=== PATIENT | male | born 1960 | race American Indian/Alaskan Native ===

== ENCOUNTER 2022-06-10 23:04 | Observation (INO) | payer OTHER ==
[2022-06-10] MEDS ORDERED: ADENOSINE 6 MG/2 ML INJ ONE (23:20)
--- NOTE | 2022-06-10 23:53 | Emergency Department Report ---
HPI - General Time Seen by Provider: 06/10/22 23:11 - [facility] HPI: Room 7 The patient is a 62-year-old male present with chief complaint of palpitations and chest pain. Patient states just prior to arrival at 2258 while at rest he developed palpitations and squeezing chest pain. Patient states he did get short of breath with the pain but denies nausea/vomiting. EMS was called and arrived to find the patient in SVT. Patient was administered adenosine 6, 12 and 12 with no results. EMS EKG does not show where adenosine took effect. In the ED patient was administered 6 mg of adenosine without effect and then 12 mg of adenosine which broke the SVT the patient is now in normal sinus rhythm at 93 bpm. ED Past Medical Hx - Past Medical History Hx Hypertension: Yes Hx Diabetes: Yes - Surgical History Additional Surgical History: Mandible repair - Family History Family history: no significant - Social History Smoking Status: Unknown if ever smoked Substance Use Type: None ED Review of Systems ROS: Stated complaint: CHEST PAIN Other details as noted in HPI Constitutional: no symptoms reported Eyes: denies: eye pain ENT: denies: throat pain Respiratory: shortness of breath Cardiovascular: chest pain, palpitations Endocrine: no symptoms reported Gastrointestinal: denies: nausea, vomiting Genitourinary: denies: dysuria Musculoskeletal: denies: back pain Neurological: denies: headache Physical Exam - Physical Exam Physical Exam: GENERAL: The patient is well-developed well-nourished male lying on stretcher not appearing to be in acute distress. [] HEENT: Normocephalic. Atraumatic. Extraocular motions are intact. Patient has moist mucous membranes. NECK: Supple. Trachea midline CHEST/LUNGS: Clear to auscultation. There is no respiratory distress noted. HEART/CARDIOVASCULAR: Regular. There is tachycardia. There is no gallop rub or murmur. ABDOMEN: Abdomen is soft, nontender. Patient has normal bowel sounds. There is no abdominal distention. SKIN: There is no rash. There is no edema. There is no diaphoresis. NEURO: The patient is awake, alert, and oriented. The patient is cooperative. The patient has no focal neurologic deficits. The patient has normal speech. GCS 15 MUSCULOSKELETAL: There is no evidence of acute injury. ED Medical Decision Making - Lab Data Result diagrams: 06/10/22 23:25 06/10/22 23:25 Laboratory Tests 06/10/22 06/10/22 06/10/22 23:25 23:25 23:25 WBC 4.9 RBC 3.63 L Hgb 10.4 L Hct 32.5 L MCV 90 MCH 29 MCHC 32 RDW 12.9 L Plt Count 166 Lymph % (Auto) 25.3 [place] % (Auto) 8.4 H Eos % (Auto) 2.9 Baso % (Auto) 0.9 Lymph # (Auto) 1.2 [place] # (Auto) 0.4 Eos # (Auto) 0.1 Baso # (Auto) 0.0 Seg Neutrophils % 62.5 Seg Neutrophils # 3.1 Sodium 140 Potassium 3.8 Chloride 104.4 Carbon Dioxide 25 Anion Gap 14 BUN 26 H Creatinine 1.2 Estimated GFR > 60 BUN/Creatinine Ratio 22 Glucose 129 H Calcium 9.2 Magnesium 1.80 Total Creatine Kinase 167 CK-MB (CK-2) 3.9 CK-MB (CK-2) Rel Index 2.3 Troponin T < 0.010 TSH 2.390 Free T4 0.92 - EKG Data -: EKG Interpreted by Me Rate: tachycardia (SVT at 176 bpm) - EKG Data Interpretation: other (EKG #2 status post adenosine normal sinus at 93 bpm. No ischemic changes seen) - Radiology Data Radiology results: report reviewed (Chest x-ray), image reviewed (Chest x-ray) [facility] [address] [place] [address] XRay Report Signed Patient: SANDRA CASTILLO MR#: [id number] : 1960 Acct:[id number] Age/Sex: 62 / M ADM Date: 06/10/22 Loc: ED Attending Dr: Ordering Physician: ALEJANDRO MARTIN MD Date of Service: 06/10/22 Procedure(s): XR chest 1V ap Accession Number(s): [id number] cc: ALEJANDRO MARTIN MD Fluoro Time In Minutes: XR chest 1V ap INDICATION / CLINICAL INFORMATION: chest pain/SVT. COMPARISON: None available. FINDINGS: SUPPORT DEVICES: None. HEART /PULMONARY VASCULATURE: Cardiac enlargement with mild pulmonary vasculature congestion. LUNGS / PLEURA: No significant pulmonary or pleural abnormality. No pneumothorax. ADDITIONAL FINDINGS: No significant additional findings. IMPRESSION: Cardiac enlargement with mild pulmonary vasculature congestion. Signer Name: Abraham Ramires MD Signed: 06/11/2022 12:03 AM Workstation Name: [id number] Transcribed By: JS Dictated By: ABRAHAM RAMIRES MD Electronically Authenticated By: ABRAHAM RAMIRES MD Signed Date/Time: 06/11/222 DD/ TD/TT: - Differential Diagnosis PSVT, ACS, A. fib with RVR Critical care attestation.: If time is entered above; I have spent that time in minutes in the direct care of this critically ill patient, excluding procedure time. ED Disposition Clinical Impression: PSVT (paroxysmal supraventricular tachycardia), Chest pain Disposition: ADMITTED INPATIENT Is pt being admited?: Yes Does the pt Need Aspirin: Yes Condition: Fair Instructions: Nonspecific Chest Pain, Adult Time of Disposition: 00:24 (Care transferred to hospitalist (Dr. Jesus)) Heart Score - HEART Score History: Moderately suspicious EKG: Non-specific Age: 45-65 Risk factors: 1-2 risk factors Troponin: < normal limit HEART Score: 4 - EKG Read Time Time EKG Completed: 23:40 (.) EKG Read Time: 23:52
[2022-06-11 00:01] LABS: Basophils % (Auto) 0.9 % (0.0-1.8); Eosinophils # (Auto) 0.1 K/mm3 (0.0-0.4); Eosinophils % (Auto) 2.9 % (0.0-4.3); Hematocrit 32.5 % (35.5-45.6); Hemoglobin 10.4 gm/dl (11.8-15.2); Lymphocytes # (Auto) 1.2 K/mm3 (1.2-5.4); Lymphocytes % (Auto) 25.3 % (13.4-35.0); Mean Corpuscular HGB Conc 32 % (32-34); Mean Corpuscular Volume 90 fl (84-94); Monocytes # (Auto) 0.4 K/mm3 (0.0-0.8); Monocytes % (Auto) 8.4 % (0.0-7.3); Platelet Count 166 K/mm3 (140-440); Red Blood Count 3.63 M/mm3 (3.65-5.03); Red Cell Distribution Width 12.9 % (13.2-15.2)
--- NOTE | 2022-06-11 00:07 | XRay Report ---
XR chest 1V ap INDICATION / CLINICAL INFORMATION: chest pain/SVT. COMPARISON: None available. FINDINGS: SUPPORT DEVICES: None. HEART /PULMONARY VASCULATURE: Cardiac enlargement with mild pulmonary vasculature congestion. LUNGS / PLEURA: No significant pulmonary or pleural abnormality. No pneumothorax. ADDITIONAL FINDINGS: No significant additional findings. IMPRESSION: Cardiac enlargement with mild pulmonary vasculature congestion. Signer Name: Valentino Ramires MD Signed: 06/11/2022 12:03 AM Workstation Name: [id number]
[2022-06-11 00:09] LABS: Creatine Kinase MB 3.9 ng/mL (0.0-4.0)
[2022-06-11 00:10] LABS: BUN/Creatinine Ratio 22; Blood Urea Nitrogen 26 mg/dL (9-20); Calcium 9.2 mg/dL (8.4-10.2); Hemolysis Index 21
[2022-06-11 00:21] LABS: Free T4 (Free Thyroxine) 0.92 ng/dL (0.76-1.46)
[2022-06-11] MEDS ORDERED: ADENOSINE 6 MG/2 ML INJ IV ONE ×2 (01:07)
[2022-06-11] MEDS ORDERED: MORPHINE 4 MG/1 ML INJ IV PRN (04:27)
--- NOTE | 2022-06-11 04:38 | History and Physical Report ---
History of Present Illness Date of examination: 06/11/22 Date of admission: 06/11/22 Chief complaint: Palpitation Chest pain History of present illness: 62-year-old male present with history of hypertension and diabetes was brought to the emergency room because of palpitations and chest pain. Patient states that while at rest he developed palpitations and squeezing chest pain. Patient states he did get short of breath with the pain but denies nausea/vomiting. EMS was called and arrived to find the patient in SVT. Patient was administered adenosine 6, 12 and 12 with no results. EMS EKG does not show where adenosine took effect. In the ED patient was administered 6 mg of adenosine without effect and then 12 mg of adenosine which broke the SVT the patient is now in normal sinus rhythm at 93 bpm. In the emergency room initial cardiac enzyme is negative troponin is 0.010, TSH 2.390 and free T4 0.92.'s were going to admit the patient we will put the patient on telemetry. Will consult cardiology Past History Past Medical History: diabetes, hypertension Past Surgical History: Other (Mandible repair) Social history: no significant social history Family history: hypertension Medications and Allergies Allergies Allergy/AdvReac Type Severity Reaction Status Date / Time No Known Allergies Allergy Unverified 10/09/16 10:03 Active Meds: Active Medications Acetaminophen (Acetaminophen 325 Mg Tab) 650 mg PO Q6H PRN PRN Reason: Pain, Mild (1-3) Aspirin (Aspirin Ec 325 Mg Tab) 325 mg PO QDAY SYD Atorvastatin Calcium (Atorvastatin 40 Mg Tab) 40 mg PO QHS [facility] Heparin Sodium (Porcine) (Heparin 5,000 Unit/1 Ml Vial) 5,000 unit SUB-Q Q12HR SYD Sodium Chloride (Nacl 0.9% 1000 Ml) 1,000 mls @ 100 mls/hr IV DIRECT SYD Morphine Sulfate (Morphine 4 Mg/1 Ml Inj) 2 mg IV Q5MIN PRN PRN Reason: Chest Pain unrelieved by NTG Nitroglycerin (Nitroglycerin 0.4 Mg Tab Subl) 0.4 mg SL Q5M PRN PRN Reason: Chest Pain Pantoprazole Sodium (Pantoprazole 40 Mg Tab) 40 mg PO QDAY SYD Sodium Chloride (Sodium Chloride 0.9% 10 Ml Flush Syringe) 10 ml IV PRN PRN PRN Reason: LINE FLUSH Tramadol HCl (Tramadol 50 Mg Tab) 50 mg PO Q6H PRN PRN Reason: Pain, Moderate (4-6) Review of Systems All systems: negative Cardiovascular: chest pain, palpitations, shortness of breath Exam - Constitutional General appearance: Present: no acute distress, well-nourished - EENT Eyes: Present: PERRL ENT: hearing intact, clear oral mucosa - Neck Neck: Present: supple, normal ROM - Respiratory Respiratory effort: normal Respiratory: bilateral: CTA - Cardiovascular Heart Sounds: Present: S1 & S2. Absent: rub, click - Extremities Extremities: pulses symmetrical, No edema Peripheral Pulses: within normal limits - Abdominal General gastrointestinal: Present: soft, non-tender, non-distended, normal bowel sounds Male genitourinary: Present: normal - Integumentary Integumentary: Present: clear, warm, dry - Musculoskeletal Musculoskeletal: gait normal, strength equal bilaterally - Psychiatric Psychiatric: appropriate mood/affect, intact judgment & insight - Neurologic Neurologic: CNII-XII intact, moves all extremities HEART Score - HEART Score EKG: Non-specific Age: 45-65 Risk factors: 1-2 risk factors Troponin: Troponin T < 0.010 ng/mL (0.00-0.029) 06/10/22 23:25 Troponin: < normal limit Results - Labs CBC & Chem 7: 06/10/22 23:25 06/10/22 23:25 Labs: Laboratory Last Values WBC 4.9 K/mm3 (4.5-11.0) 06/10/22 23:25 RBC 3.63 M/mm3 (3.65-5.03) L 06/10/22 23:25 Hgb 10.4 gm/dl (11.8-15.2) L 06/10/22 23:25 Hct 32.5 % (35.5-45.6) L 06/10/22 23:25 MCV 90 fl (84-94) 06/10/22 23:25 MCH 29 pg (28-32) 06/10/22 23:25 MCHC 32 % (32-34) 06/10/22 23:25 RDW 12.9 % (13.2-15.2) L 06/10/22 23:25 Plt Count 166 K/mm3 (140-440) 06/10/22 23:25 Lymph % (Auto) 25.3 % (13.4-35.0) 06/10/22 23:25 [place] % (Auto) 8.4 % (0.0-7.3) H 06/10/22 23:25 Eos % (Auto) 2.9 % (0.0-4.3) 06/10/22 23:25 Baso % (Auto) 0.9 % (0.0-1.8) 06/10/22 23:25 Lymph # (Auto) 1.2 K/mm3 (1.2-5.4) 06/10/22 23:25 [place] # (Auto) 0.4 K/mm3 (0.0-0.8) 06/10/22 23:25 Eos # (Auto) 0.1 K/mm3 (0.0-0.4) 06/10/22 23:25 Baso # (Auto) 0.0 K/mm3 (0.0-0.1) 06/10/22 23:25 Seg Neutrophils % 62.5 % (40.0-70.0) 06/10/22 23:25 Seg Neutrophils # 3.1 K/mm3 (1.8-7.7) 06/10/22 23:25 Sodium 140 mmol/L (137-145) 06/10/22 23:25 Potassium 3.8 mmol/L (3.6-5.0) 06/10/22 23:25 Chloride 104.4 mmol/L (98-107) 06/10/22 23:25 Carbon Dioxide 25 mmol/L (22-30) 06/10/22 23:25 Anion Gap 14 mmol/L 06/10/22 23:25 BUN 26 mg/dL (9-20) H 06/10/22 23:25 Creatinine 1.2 mg/dL (0.8-1.3) 06/10/22 23:25 Estimated GFR > 60 ml/min 06/10/22 23:25 BUN/Creatinine Ratio 22 % 06/10/22 23:25 Glucose 129 mg/dL (75-100) H 06/10/22 23:25 Calcium 9.2 mg/dL (8.4-10.2) 06/10/22 23:25 Magnesium 1.80 mg/dL (1.7-2.3) 06/10/22 23:25 Total Creatine Kinase 167 units/L (55-170) 06/10/22 23:25 CK-MB (CK-2) 3.9 ng/mL (0.0-4.0) 06/10/22 23:25 CK-MB (CK-2) Rel Index 2.3 (0-4) 06/10/22 23:25 Troponin T < 0.010 ng/mL (0.00-0.029) 06/10/22 23:25 TSH 2.390 mlU/mL (0.270-4.200) 06/10/22 23:25 Free T4 0.92 ng/dL (0.76-1.46) 06/10/22 23:25 - Imaging and Cardiology Chest x-ray: report reviewed Assessment and Plan VTE prophylaxis?: Chemical Plan of care discussed with patient/family: Yes - Patient Problems (1) ACS (acute coronary syndrome) Current Visit: Yes Status: Acute Plan to address problem: Admit the patient to the medical telemetry. Aspirin 325 mg p.o. daily. Lipitor 40 mg p.o. daily. Nitroglycerin as needed. Serial cardiac enzymes. Echocardiogram. Cardiology evaluation (2) SVT (supraventricular tachycardia) Current Visit: Yes Status: Acute Plan to address problem: Aspirin 325 mg p.o. daily. Lipitor 40 mg p.o. daily. Lopressor 25 mg p.o. twice daily. Nitroglycerin as needed. Serial cardiac enzymes. Echocardiogram. Cardiology evaluation (3) Diabetes 1.5, managed as type 2 Current Visit: Yes Status: Acute Plan to address problem: Humalog sliding scale Accu-Chek every 6 hours with moderate dose coverage. Diabetic education (4) HTN (hypertension) Current Visit: Yes Status: Acute Plan to address problem: Lopressor 25 mg p.o. twice daily. We will continue the home medication (5) DVT prophylaxis Current Visit: Yes Status: Acute Plan to address problem: Heparin 5000 units subcu every 12 hours for DVT prophylaxis. Protonix 40 mg p.o. daily for GI prophylaxis. Patient is a full code
[2022-06-11] MEDS ORDERED: DEXTROSE 50% IN WATER (25GM) 50 ML SYRINGE IV PRN (05:00)
[2022-06-11] MEDS ORDERED: ACETAMINOPHEN 325 MG TAB PO PRN (05:00)
[2022-06-11] MEDS ORDERED: SODIUM CHLORIDE 0.9% 1000 ML 1,000 ML IV SCH (05:00)
[2022-06-11 05:58] LABS: Amphetamine Screen,Urine Negative; Benzodiazepines Screen,Urine Negative; Cannabinoid Screen,Urine Negative; Cocaine Screen,Urine Negative; Methadone Screen,Urine Negative; Opiate Screen,Urine Negative
[2022-06-11] MEDS ORDERED: NITROGLYCERIN 0.4 MG TAB SUBL SL PRN (06:00)
[2022-06-11] MEDS ORDERED: traMADol 50 MG TAB PO PRN (06:00)
[2022-06-11 06:17] LABS: Eosinophils # (Auto) 0.2 K/mm3 (0.0-0.4); Eosinophils % (Auto) 4.2 % (0.0-4.3); Hematocrit 33.1 % (35.5-45.6); Hemoglobin 10.6 gm/dl (11.8-15.2); Lymphocytes # (Auto) 1.2 K/mm3 (1.2-5.4); Lymphocytes % (Auto) 26.1 % (13.4-35.0); Mean Corpuscular HGB Conc 32 % (32-34); Mean Corpuscular Volume 90 fl (84-94); Monocytes # (Auto) 0.4 K/mm3 (0.0-0.8); Monocytes % (Auto) 8.3 % (0.0-7.3); Platelet Count 163 K/mm3 (140-440); Red Blood Count 3.66 M/mm3 (3.65-5.03); Red Cell Distribution Width 13.1 % (13.2-15.2)
[2022-06-11 06:33] LABS: BUN/Creatinine Ratio 23; Blood Urea Nitrogen 23 mg/dL (9-20); Calcium 9.2 mg/dL (8.4-10.2); Hemolysis Index 7
[2022-06-11] MEDS: INSULIN LISPRO 100 UNIT/ML SUB-Q SCH ×3 (06:36→17:09)
[2022-06-11] MEDS ORDERED: PANTOPRAZOLE 40 MG TAB PO SCH (10:00)
[2022-06-11] MEDS ORDERED: HEPARIN 5,000 UNIT/1 ML VIAL SUB-Q SCH (10:00)
[2022-06-11] MEDS ORDERED: METOPROLOL TARTRATE 25 MG TAB PO SCH (10:00)
--- NOTE | 2022-06-11 12:58 | Discharge Summary ---
Providers - Providers Date of Admission: 06/11/22 04:27 Date of discharge: 06/11/22 Attending physician: BETH SEARS MD 06/11/22 Consult to Cardiac Rehabilitation [CONS] Routine Reason For Exam: Phase I 06/11/22 04:27 Consult to Cardiology [CONS] Routine Consulting Provider: SAL MASON Reason For Exam: svt 06/11/22 04:39 Consult to Dietitian/Nutrition [CONS] Routine Physician Instructions: Reason For Exam: Reason for Consult: Diet education Primary care physician: ORCHID HAND Hospitalization Reason for admission: chest pain, palpitations Condition: Fair Hospital course: History of present illness: 62-year-old male present with history of hypertension and diabetes was brought to the emergency room because of palpitations and chest pain. Patient states that while at rest he developed palpitations and squeezing chest pain. Patient states he did get short of breath with the pain but denies nausea/vomiting. EMS was called and arrived to find the patient in SVT. Patient was administered adenosine 6, 12 and 12 with no results. EMS EKG does not show where adenosine took effect. In the ED patient was administered 6 mg of adenosine without effect and then 12 mg of adenosine which broke the SVT the patient is now in normal sinus rhythm at 93 bpm. In the emergency room initial cardiac enzyme is negative troponin is 0.010, TSH 2.390 and free T4 0.92.'s were going to admit the patient we will put the patient on telemetry. Will consult cardiology Hospital course: SVT resolved, currently normal sinus rhythm. Patient converted to normal sinus rhythm. Patient was asymptomatic during my encounter. Cardiology states based on their evaluation that the patient can can be safely discharged home. Medically cleared from their standpoint for discharge. They recommended prescriptions for aspirin atorvastatin metoprolol on discharge. Patient can follow-up outpatient with cardiology and is advised to get a repeat echo at that appointment. Assessment and Plan: (1) ACS (acute coronary syndrome) Current Visit: Yes Status: Acute Plan to address problem: Admit the patient to the medical telemetry. Aspirin 325 mg p.o. daily. Lipitor 40 mg p.o. daily. Nitroglycerin as needed. Serial cardiac enzymes. Echocardiogram. Cardiology evaluation (2) SVT (supraventricular tachycardia) Current Visit: Yes Status: Acute Plan to address problem: Aspirin 325 mg p.o. daily. Lipitor 40 mg p.o. daily. Lopressor 25 mg p.o. twice daily. Nitroglycerin as needed. Serial cardiac enzymes. Echocardiogram. Cardiology evaluation (3) Diabetes 1.5, managed as type 2 Current Visit: Yes Status: Acute Plan to address problem: Humalog sliding scale Accu-Chek every 6 hours with moderate dose coverage. Diabetic education (4) HTN (hypertension) Current Visit: Yes Status: Acute Plan to address problem: Lopressor 25 mg p.o. twice daily. We will continue the home medication (5) DVT prophylaxis Current Visit: Yes Status: Acute Plan to address problem: Heparin 5000 units subcu every 12 hours for DVT prophylaxis. Protonix 40 mg p.o. daily for GI prophylaxis. Patient is a full code Disposition: 30 STILL A PATIENT Final Discharge Diagnosis (Prints w/discharge instructions): supraventricular tachycardia Time spent for discharge: 35 Core Measure Documentation - Palliative Care Palliative Care/ Comfort Measures: Not Applicable - Core Measures Any of the following diagnoses?: none Exam - Physical Exam Narrative exam: Physical Exam: VITAL SIGNS: Reviewed. GENERAL: The patient appears normally developed, Vital signs as documented. HEAD: No signs of head trauma. EYES: Pupils are equal. Extraocular motions intact. EARS: Hearing grossly intact. MOUTH: Oropharynx is normal. NECK: No adenopathy, no JVD. CHEST: Chest with clear breath sounds bilaterally. No wheezes, rales, or rhonchi. CARDIAC: Regular rate and rhythm. S1 and S2, without murmurs, gallops, or rub s. VASCULAR: No Edema. Peripheral pulses normal and equal in all extremities. ABDOMEN: Soft, non tender and non distended. No rebound or guarding, and no masses palpated. Bowel Sounds normal. MUSCULOSKELETAL: Good range of motion of all major joints. Extremities without clubbing, cyanosis or edema. NEUROLOGIC EXAM: Alert and oriented x 4. no focal sensory or strength deficits. PSYCHIATRIC: Mood normal. SKIN: detail exam as documented in skin assessment - Constitutional Vitals: Temp Pulse Resp BP Pulse Ox 32.1 F L 73 16 150/83 96 06/11/22 07:31 06/11/22 07:31 06/11/22 04:58 06/11/22 07:31 06/11/22 11:01 Plan Follow up with: WAGNER ESPARZA MD [Primary Care Provider] - 7 Days Prescriptions: AtorvaSTATin [Lipitor] 40 mg PO QHS 30 Days #30 tablet Aspirin EC [Halfprin EC] 81 mg PO QDAY 30 Days #30 tablet. Metoprolol [Lopressor TAB] 25 mg PO BID 30 Days #60 tablet
--- NOTE | 2022-06-11 14:24 | Consultation ---
History of Present Illness Consult date: 06/11/22 Requesting physician: TOMER SALES Consult reason: other (svt) History of present illness: Patient is 62-year-old male with a past medical history of hypertension and diabetes who came to the ED due to palpitations which he states developed last night. Patient reports he felt his heart pounding and contacted EMS. Patient was found to be in SVT. EMS administered adenosine without any effect. Patient transferred to the hospital given additional doses of adenosine and converted to normal sinus rhythm. Patient denies any complaints of chest pain, shortness of breath, nausea, vomiting, lightheadedness. Patient is previously unknown to our practice. Cardiology is consulted for chest pain. Past History Past Medical History: diabetes, hypertension Past Surgical History: Other (Mandible repair) Social history: no significant social history Family history: hypertension Medications and Allergies Allergies Allergy/AdvReac Type Severity Reaction Status Date / Time No Known Allergies Allergy Unverified 10/09/16 10:03 Home Medications Medication Instructions Recorded Confirmed Last Taken Type Aspirin EC [Halfprin EC] 81 mg PO QDAY 30 Days #30 tablet.dr 06/11/22 Unknown Rx AtorvaSTATin [Lipitor] 40 mg PO QHS 30 Days #30 tablet 06/11/22 Unknown Rx Metoprolol [Lopressor TAB] 25 mg PO BID 30 Days #60 tablet 06/11/22 Unknown Rx Active Meds: Active Medications Acetaminophen (Acetaminophen 325 Mg Tab) 650 mg PO Q6H PRN PRN Reason: Pain, Mild (1-3) Aspirin (Aspirin Ec 325 Mg Tab) 325 mg PO QDAY SYD Atorvastatin Calcium (Atorvastatin 40 Mg Tab) 40 mg PO QHS SYD Dextrose (Dextrose 50% In Water (25gm) 50 Ml Syringe) 50 ml IV Q30MIN PRN; Pr otocol PRN Reason: Hypoglycemia Heparin Sodium (Porcine) (Heparin 5,000 Unit/1 Ml Vial) 5,000 unit SUB-Q Q12HR SYD Last Admin: 06/11/22 10:00 Dose: 5,000 unit Sodium Chloride (Nacl 0.9% 1000 Ml) 1,000 mls @ 100 mls/hr IV DIRECT SYD Insulin Human Lispro (Insulin Lispro 100 Unit/Ml) 0 unit SUB-Q Q6HR SYD; Protocol Last Admin: 06/11/22 13:55 Dose: 2 unit Metoprolol Tartrate (Metoprolol Tartrate 25 Mg Tab) 25 mg PO BID [facility] Last Admin: 06/11/22 09:59 Dose: 25 mg Morphine Sulfate (Morphine 4 Mg/1 Ml Inj) 2 mg IV Q5MIN PRN PRN Reason: Chest Pain unrelieved by NTG Nitroglycerin (Nitroglycerin 0.4 Mg Tab Subl) 0.4 mg SL Q5M PRN PRN Reason: Chest Pain Pantoprazole Sodium (Pantoprazole 40 Mg Tab) 40 mg PO QDAY [facility] Last Admin: 06/11/22 10:01 Dose: 40 mg Sodium Chloride (Sodium Chloride 0.9% 10 Ml Flush Syringe) 10 ml IV PRN PRN PRN Reason: LINE FLUSH Tramadol HCl (Tramadol 50 Mg Tab) 50 mg PO Q6H PRN PRN Reason: Pain, Moderate (4-6) Review of Systems Constitutional: no weight loss, no weight gain Ears, nose, mouth and throat: no sinus pressure, no sinus pain Cardiovascular: palpitations, rapid/irregular heart beat, high blood pressure, no chest pain, no orthopnea, no lightheadedness, no shortness of breath, no dyspnea on exertion Respiratory: no shortness of breath, no dyspnea on exertion Gastrointestinal: no abdominal pain, no nausea, no vomiting Musculoskeletal: no neck stiffness, no neck pain Integumentary: no rash, no pruritis, no redness Neurological: no head injury, no transient paralysis Psychiatric: no anxiety, no memory loss Endocrine: no cold intolerance, no heat intolerance Hematologic/Lymphatic: no easy bruising, no easy bleeding Physical Examination Vital Signs Pulse Resp BP Pulse Ox 82 16 114/74 97 06/11/22 04:58 06/11/22 04:58 06/11/22 04:58 06/11/22 04:58 General appearance: no acute distress HEENT: Positive: PERRL Neck: Positive: trachea midline Cardiac: Positive: Reg Rate and Rhythm Lungs: Positive: Normal Breath Sounds Neuro: Positive: Grossly Intact Abdomen: Positive: Soft Skin: Negative: Rash, Suspicious Lesions, Ulceration Extremities: Present: upper extr. pulses. Absent: edema Results 06/11/22 05:49 06/11/22 05:49 Cardiac Enzymes 06/10/22 Range/Units 23:25 CK-MB (CK-2) 3.9 (0.0-4.0) ng/mL CBC 06/10/22 06/11/22 Range/Units 23:25 05:49 WBC 4.9 4.7 (4.5-11.0) K/mm3 RBC 3.63 L 3.66 (3.65-5.03) M/mm3 Hgb 10.4 L 10.6 L (11.8-15.2) gm/dl Hct 32.5 L 33.1 L (35.5-45.6) % Plt Count 166 163 (140-440) K/mm3 Lymph # (Auto) 1.2 1.2 (1.2-5.4) K/mm3 [place] # (Auto) 0.4 0.4 (0.0-0.8) K/mm3 Eos # (Auto) 0.1 0.2 (0.0-0.4) K/mm3 Baso # (Auto) 0.0 0.0 (0.0-0.1) K/mm3 Comprehensive Metabolic Panel 06/10/22 06/11/22 Range/Units 23:25 05:49 Sodium 140 140 (137-145) mmol/L Potassium 3.8 3.9 (3.6-5.0) mmol/L Chloride 104.4 107.3 H (98-107) mmol/L Carbon Dioxide 25 26 (22-30) mmol/L BUN 26 H 23 H (9-20) mg/dL Creatinine 1.2 1.0 (0.8-1.3) mg/dL Glucose 129 H 144 H (75-100) mg/dL Calcium 9.2 9.2 (8.4-10.2) mg/dL - Imaging and Cardiology EKG: report reviewed, image reviewed EKG interpretations - Telemetry EKG Rhythm: Sinus Rhythm - EKG Sinus rhythms and dysrhythmias: sinus rhythm Assessment and Plan Patient is 62-year-old male with a past medical history of hypertension and diabetes who came to the ED due to palpitations which he states developed last night SVT Hypertension Diabetes Hyperlipidemia Plan: EKG during admission showed SVT rate 176 Repeat EKG shows sinus rhythm 93 no acute ischemic changes. Patient denies any complaints of chest pain Telemetry reviewed patient sinus 70s to 80s on monitor with no event Agree with metoprolol 25 mg p.o. twice daily for rate control and atorvastatin 40 mg p.o. nightly Patient will be scheduled for outpatient ischemic eval and echo Cardiac status otherwise stable for discharge Patient has been scheduled for stress test and echo on 07/03/2022 at 10 AM in our [place] location Patient follow-up appointment with Dr. Gupta, [facility] security services specialist, on 07/29/2022 at 1:30 PM in our [place] location. Phone #[phone] Patient seen in conjunction with Dr. Gupta who agrees this plan of care - Patient Problems (1) SVT (supraventricular tachycardia) Current Visit: Yes Status: Acute (2) Diabetes 1.5, managed as type 2 Current Visit: Yes Status: Acute (3) HTN (hypertension) Current Visit: Yes Status: Acute (4) PSVT (paroxysmal supraventricular tachycardia) Current Visit: Yes Status: Acute
[2022-06-11 16:29] VITALS: BP 138/80
[2022-06-12] MEDS ORDERED: ASPIRIN EC 325 MG TAB PO SCH (10:00)
--- NOTE | 2022-06-12 10:57 | Electrocardiograph Report ---
[facility] Test Date: 2022-06-10 Test Time: 23:26:00 Pat Name: SANDRA CASTILLO Department: Room: A473 1 Gender: M Python Developer: RON : 1960 Requested By: ALEJANDRO MARTIN Order Number: [id number] Reading MD: Sundar Gupta Measurements Intervals [place] Rate: 176 P: 0 VA: QRS: 45 QRSD: 77 T: -68 QT: 272 QTc: 466 Interpretive Statements Supraventricular tachycardia Repolarization abnormality, prob rate related No previous ECG available for comparison Electronically Signed On 06-12-2022 10:57:32 EDT by Sundar Gupta
--- NOTE | 2022-06-12 10:58 | Electrocardiograph Report ---
[facility] Test Date: 2022-06-10 Test Time: 23:40:28 Pat Name: SANDRA CASTILLO Department: Room: A473 1 Gender: M Sales Engagement Manager: RUSTY : 1960 Requested By: ALEJANDRO MARTIN Order Number: [id number] Reading MD: Sundar Gupta Measurements Intervals [place] Rate: 93 P: 58 GA: 217 QRS: 26 QRSD: 83 T: 42 QT: 346 QTc: 431 Interpretive Statements Sinus rhythm Prolonged GA interval Compared to ECG 06/10/2022 23:26:00 First degree AV block now present Supraventricular tachycardia no longer present Early repolarization no longer present Electronically Signed On 06-12-2022 10:57:39 EDT by Sundar Gupat
--- NOTE | 2022-06-12 11:05 | Electrocardiograph Report ---
[facility] Test Date: 2022-06-11 Test Time: 08:02:10 Pat Name: SANDRA CASTILLO Department: Room: A473 1 Gender: M Evs Manager: FINN : 1960 Requested By: TOMER SALES Order Number: [id number] Reading MD: Sundar Gupta Measurements Intervals [place] Rate: 78 P: 50 IN: 242 QRS: 25 QRSD: 88 T: 24 QT: 359 QTc: 410 Interpretive Statements Sinus rhythm Prolonged IN interval Compared to ECG 06/10/2022 23:40:28 No significant changes Electronically Signed On 06-12-2022 11:04:23 EDT by Sundar Gupta
== END 2022-06-11 18:52 | disposition home or self-care (01) ==
LOC: ED 23:04 → INTOOBSV 06-11 04:27 → 4A 06-11 04:27
PROVIDERS: ADMIT Hospitalist; ATTEND Internal Medicine
DX: I24.9 Acute ischemic heart disease, unspecified (principal); I47.1 Supraventricular tachycardia; I10 Essential (primary) hypertension; E11.9 Type 2 diabetes mellitus without complications; R07.89 Other chest pain; Z79.899 Other long term (current) drug therapy; Z98.890 Other specified postprocedural states; Z79.82 Long term (current) use of aspirin
CPT/HCPCS: 36415; 71045; 80048; 80307; 82550; 82553; 82962; 83735; 84439; 84443; 84484; 85025; 93005; 96372; 96374; 96376; 99285; G0378; J0153; J1644; Q9967; J1815